=== PATIENT | male | born 1930 | race African-American/Black ===

== ENCOUNTER 2021-01-29 17:32 | Emergency (ER) | payer MEDICARE ==
[~2021-01-29] VITALS: Ht 182.9 cm; Wt 90.0 kg
[2021-01-29 21:07] LABS: BASOPHILS % 0.7 % (0.0-2.0); HEMATOCRIT. 34.8 % (42.0-52.0); HEMOGLOBIN. 11.6 g/dL (14.0-18.0); LYMPHOCYTES % 24.1 % (20.0-50.0); MEAN CORPUSCULAR HEMOGLOBIN 29.9 pg (28.0-32.0); MEAN CORPUSCULAR VOLUME 89.5 fL (80.0-94.0); MEAN PLATELET VOLUME 9.2 fl (7.4-10.4); MONOCYTES % 10.3 % (2.0-8.0); NEUTROPHILS % 63.9 % (40.0-76.0); PLATELET 148 x1000/uL (130-400); RED BLOOD CELL COUNT 3.89 mill/uL (4.7-6.1); RED CELL DISTRIBUTION WIDTH 15.7 % (11.6-14.6)
[2021-01-29 21:10] LABS: CHLORIDE 111 mEq/L (98-107)
[2021-01-29 21:15] LABS: ETHANOL BLOOD < 10 mg/dL
[2021-01-30 03:35] VITALS: BP 149/89
== END 2021-01-30 03:23 | disposition left against medical advice (07) ==
LOC: ER 17:32 → ENRESERV 01-30 02:15 → CANRESERV 01-30 02:15 → ER 01-30 03:23 → CANBEDREQ 01-30 04:01
DX: R29.818 Other symptoms and signs involving the nervous system (principal); I10 Essential (primary) hypertension; E11.9 Type 2 diabetes mellitus without complications; E78.00 Pure hypercholesterolemia, unspecified; W01.190A Fall on same level from slipping, tripping and stumbling with subsequent striking against furniture, initial encounter; Y93.89 Activity, other specified; Y92.018 Other place in single-family (private) house as the place of occurrence of the external cause
CPT/HCPCS: 36415; 80053; 80320; 82962; 84443; 84484; 85025; 93005; 99285; G0480